=== PATIENT | female | born 1990 | race Hispanic/Latino ===

== ENCOUNTER 2017-05-28 09:31 | Emergency (ER) | payer OTHER ==
[~2017-05-28] VITALS: Ht 162.6 cm; Wt 59.4 kg
== END 2017-05-28 10:37 | disposition home or self-care (01) ==
LOC: ED 09:31
DX: T16.2XXA Foreign body in left ear, initial encounter (principal)
CPT/HCPCS: 99282

== ENCOUNTER 2018-07-12 06:11 | Inpatient (IN) | payer OTHER ==
[2018-07-12] MEDS ORDERED: VITAFOL-OB+DHA1 EACH PO (06:42)
--- NOTE | 2018-07-13 11:10 | PR ---
[facility] [address] [facility] [place] [address] Signed PP Progress Notes Datetime Report Generated by CPN: 07/13/2018 11:10 SUBJECTIVE: [id number] Pain: Within normal limits Nausea/Vomiting: Denies Vital Signs: [id number] Vital Signs: Reviewed; Within Normal Limits Notable Details: PP Hgb/Hct = 12.6/38.4 EXAM: [id number] Abdomen/Uterus: Normal Lochia: Normal Extremities: Normal IMPRESSION/PLAN/PROCEDURES: [id number] Impression: Normal progression Plan: Discharge Procedures: None Progress Notes: Doing well, without complaint, wants to go home. Signing Physician: Clarisa Garcia MD Copies: ~ *Electronically Signed* 07/13/18 1110 CLARISA GARCIA MD PATIENT NAME: JAIMIE CASTELLANOS PROGRESS NOTE DATE OF : [birth year] PHYSICIAN: CLARISA GARCIA MD RPT #: [id number] REPORT IS CONFIDENTIAL AND NOT TO BE RELEASED WITHOUT AUTHORIZATION
== END 2018-07-13 14:05 | disposition home or self-care (01) | DRG 775 ==
LOC: FBCO 06:11 → FBC 06:25
PROVIDERS: ADMIT General Practice
PROC: 10E0XZZ Delivery of Products of Conception, External Approach (ICD-10-PCS; principal; 2018-07-12)
DX: O69.81X0 Labor and delivery complicated by cord around neck, without compression, not applicable or unspecified (principal); Z3A.39 39 weeks gestation of pregnancy; Z37.0 Single live birth
CPT/HCPCS: 36415; 85027; J2590

== ENCOUNTER 2020-02-08 14:07 | Emergency (ER) | payer OTHER ==
[~2020-02-08] VITALS: Ht 162.6 cm; Wt 59.4 kg
[~2020-02-08 14:07] MED LIST: VITAFOL-OB+DHA1 EACH PO
--- OUTSIDE RECORDS SUMMARY | 2020-02-08 14:10 | XMS ---
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 ENorm VISIT COUNT (12 MO.) 1 POLLY Olson TOTAL 1 NOTE: Visits indicate total known visits. ED/UCC VISIT TRACKING (12 MO.) 02/08/2020 14:08 [facility] [place] TYPE: Emergency COMPLAINT: - EAR PAIN, FLU SYMPTOMS INPATIENT VISIT TRACKING (12 MO.) No inpatient visits to display in this time frame [email or web address]
== END 2020-02-08 14:39 | disposition home or self-care (01) ==
LOC: ED 14:07
DX: H92.09 Otalgia, unspecified ear (principal)

== ENCOUNTER 2020-09-21 14:57 | Inpatient (IN) | payer OTHER ==
--- NOTE | 2020-09-22 12:29 | PR ---
[facility] [address] [facility] [place] [address] Signed PP Progress Notes Datetime Report Generated by CPN: 09/22/2020 12:29 SUBJECTIVE: [id number] Pain: Within Normal Limits Nausea/Vomiting: Denies Vital Signs: [id number] Vital Signs: Reviewed; Within Normal Limits Notable Details: PP Hgb/Hct = 11.6/34.1 Abdomen/Uterus: Normal Lochia: Normal Extremities: Normal IMPRESSION/PLAN/PROCEDURES: [id number] Impression: Normal Progression Plan: Continue Present Management Procedures: None Progress Notes: Doing well, without complaint, had episode of dizziness, with room spinning earlier, treated with Meclizine, feeling better now Signing Physician: Clarisa Garcia MD Copies: ~ *Electronically Signed* 09/22/20 1229 CLARISA GARCIA MD PATIENT NAME: JAIMIE CASTELLANOS PROGRESS NOTE DATE OF : 90 PHYSICIAN: CLARISA GARCIA MD RPT #: [id number] REPORT IS CONFIDENTIAL AND NOT TO BE RELEASED WITHOUT AUTHORIZATION
--- NOTE | 2020-09-23 09:19 | PR ---
[facility] [address] [facility] [place] [address] Signed PP Progress Notes Datetime Report Generated by CPN: 09/23/2020 09:19 SUBJECTIVE: [id number] Pain: Within Normal Limits Nausea/Vomiting: Denies Vital Signs: [id number] Vital Signs: Reviewed; Within Normal Limits Notable Details: PP Hgb/Hct = 11.6/34.1 Abdomen/Uterus: Normal Lochia: Normal Extremities: Normal IMPRESSION/PLAN/PROCEDURES: [id number] Impression: Normal Progression Plan: Discharge Procedures: None Progress Notes: Doing well, without complaint, ready to go home. Signing Physician: Clarisa Garcia MD Copies: ~ *Electronically Signed* 09/23/20 0919 CLARISA GARCIA MD PATIENT NAME: JAIMIE CASTELLANOS PROGRESS NOTE DATE OF : 90 PHYSICIAN: CLARISA GARCIA MD RPT #: [id number] REPORT IS CONFIDENTIAL AND NOT TO BE RELEASED WITHOUT AUTHORIZATION
== END 2020-09-23 10:10 | disposition home or self-care (01) | DRG 807 ==
LOC: FBCO 14:57 → FBC 15:11 → MS 09-22 16:00 → FBC 09-22 16:34 → FBCO 10-27 14:12
PROVIDERS: ADMIT General Practice; ATTEND General Practice
PROC: 10E0XZZ Delivery of Products of Conception, External Approach (ICD-10-PCS; principal; 2020-09-21)
PROC: 10907ZC Drainage of Amniotic Fluid, Therapeutic from Products of Conception, Via Natural or Artificial Opening (ICD-10-PCS; 2020-09-21)
DX: O99.824 Streptococcus B carrier state complicating childbirth (principal); Z37.0 Single live birth; Z3A.38 38 weeks gestation of pregnancy; O62.3 Precipitate labor; O34.43 Maternal care for other abnormalities of cervix, third trimester; O99.893 Other specified diseases and conditions complicating puerperium; R42 Dizziness and giddiness
CPT/HCPCS: 36415; 85027; A9270; J2540; J2590; J7121

== ENCOUNTER 2022-08-11 11:45 | Inpatient (IN) | payer OTHER ==
[~2022-08-11] VITALS: Ht 147.3 cm; Wt 59.9 kg
--- NOTE | 2022-08-11 12:07 | NUR ---
RT COLLECTED RAPID COVID 19 SWAB AT THIS TIME WITH NO COMPLICATIONS.
--- NOTE | 2022-08-11 14:32 | PR ---
[facility] [address] [place] [address] Signed PP Progress Notes Datetime Report Generated by CPN: 08/11/2022 14:32 SUBJECTIVE: [id number] Pain: Within Normal Limits Nausea/Vomiting: Denies Vital Signs: [id number] Vital Signs: Reviewed; Within Normal Limits Abdomen/Uterus: Normal Lochia: Normal Vulva/Perineum: Normal Exam Comments: Uterus firm, below umbilicus IMPRESSION/PLAN/PROCEDURES: [id number] Other Impression: PP Hemorrhage Progress Notes: Patient doing well, but passed large clot and excess bleeding, estimated blood loss about 1000 ml since after delivery Now firm again and minimal bleeding from vagina. Cytotec Suppository. IV TXA Start IV with 40 units Pitocin in 1 L LR @ 200 ml/hr Dumont to bladder IM Methergine 0.2 mg Seems stable now. Continue close monitoring. Signing Physician: Clarisa Nova MD Copies: ~ *Electronically Signed* 08/11/22 1433 CLARISA NOVA MD PATIENT NAME: JAIMIE CASTELLANOS PROGRESS NOTE DATE OF : 90 PHYSICIAN: CLARISA NOVA MD RPT #: [id number] REPORT IS CONFIDENTIAL AND NOT TO BE RELEASED WITHOUT AUTHORIZATION
--- NOTE | 2022-08-11 16:58 | PR ---
[facility] [address] [place] [address] Signed PP Progress Notes Datetime Report Generated by CPN: 08/11/2022 16:58 SUBJECTIVE: [id number] Pain: Within Normal Limits Nausea/Vomiting: Denies Vital Signs: [id number] Vital Signs: Reviewed; Within Normal Limits Abdomen/Uterus: Normal Lochia: Normal Vulva/Perineum: Normal Exam Comments: Uterus firm, below umbilicus IMPRESSION/PLAN/PROCEDURES: [id number] Other Impression: PP Hemorrhage Plan: Continue Present Management Progress Notes: Bleeding better now. Will check Coag profile. Continue monitoring bleeding and uterine tone. May need Bakri Balloon. Signing Physician: Clarisa Garcia MD Copies: ~ *Electronically Signed* 08/11/22 1658 CLARISA GARCIA MD PATIENT NAME: JAIMIE CASTELLANOS PROGRESS NOTE DATE OF : 90 PHYSICIAN: CLARISA GARCIA MD RPT #: [id number] REPORT IS CONFIDENTIAL AND NOT TO BE RELEASED WITHOUT AUTHORIZATION
--- NOTE | 2022-08-12 08:23 | PR ---
[facility] [address] [facility] [place] [address] Signed PP Progress Notes Datetime Report Generated by CPN: 08/12/2022 08:22 SUBJECTIVE: [id number] Pain: Within Normal Limits Nausea/Vomiting: Denies Vital Signs: [id number] Vital Signs: Reviewed Notable Details: PP Hgb/Hct = 10.1/30.0 Abdomen/Uterus: Normal Lochia: Normal Vulva/Perineum: Normal Extremities: Normal Exam Comments: PT/PTT/Fibrinogen all normal IMPRESSION/PLAN/PROCEDURES: [id number] Impression: Normal Progression Other Impression: Anemia form acute PP hemorrhage Plan: Discharge Procedures: None Progress Notes: Doing well, minimal cramping, no further heavy bleeding, wants to go home. Signing Physician: Clarisa Garcia MD Copies: ~ *Electronically Signed* 08/12/22821 CLARISA GARCIA MD PATIENT NAME: JAIMIE CASTELLANOS PROGRESS NOTE DATE OF : 90 PHYSICIAN: CLARISA GARCIA MD RPT #: [id number] REPORT IS CONFIDENTIAL AND NOT TO BE RELEASED WITHOUT AUTHORIZATION
== END 2022-08-12 14:10 | disposition home or self-care (01) | DRG 806 ==
LOC: FBCO 11:45 → MS 11:58 → FBC 11:58 → FBCO 11:58 → MS 15:46 → FBC 15:46 → MS 15:46 → FBC 08-12 14:10
PROVIDERS: ADMIT General Practice; ATTEND General Practice
PROC: 10E0XZZ Delivery of Products of Conception, External Approach (ICD-10-PCS; principal; 2022-08-11)
PROC: 10907ZC Drainage of Amniotic Fluid, Therapeutic from Products of Conception, Via Natural or Artificial Opening (ICD-10-PCS; 2022-08-11)
DX: O62.3 Precipitate labor (principal); O72.1 Other immediate postpartum hemorrhage; Z37.0 Single live birth; D62 Acute posthemorrhagic anemia; Z3A.39 39 weeks gestation of pregnancy; O99.02 Anemia complicating childbirth; Z20.822 Contact with and (suspected) exposure to COVID-19
CPT/HCPCS: 36415; 85025; 85027; 85384; 85610; 85730; 86850; 86900; 86901; 87502; A9270; C9803; J2210; J2590; J7120; J7121; U0003

== ENCOUNTER 2022-09-01 13:18 | Emergency (ER) | payer OTHER ==
[~2022-09-01] VITALS: Ht 152.4 cm; Wt 59.9 kg
--- OUTSIDE RECORDS SUMMARY | 2022-09-01 13:24 | XMS ---
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 Anabelle has no Care Guidelines for this patient. Kimberly VISIT COUNT (12 MO.) 1 POLLY Olson TOTAL 1 NOTE: Visits indicate total known visits. ED/C VISIT TRACKING (12 MO.) 09/01/2022 13:19 [facility] OR TYPE: Emergency COMPLAINT: - SEIZURE INPATIENT VISIT TRACKING (12 MO.) 08/11/2022 11:[address] [facility] [place] TYPE: [facility] COMPLAINT: - LABOR DIAGNOSES: - Precipitate labor - Anemia complicating childbirth - Acute posthemorrhagic anemia - Anemia complicating childbirth - Single live - Contact with and (suspected) exposure to COVID-19 - 39 weeks gestation of - Other immediate hemorrhage - Other immediate hemorrhage - 39 weeks gestation of - Acute posthemorrhagic anemia - Single live [email or web address]
[2022-09-01] MEDS ORDERED: FEROSUL325 MG PO (13:41)
[2022-09-01] MEDS ORDERED: IBUPROFEN800 MG PO (13:42)
--- NOTE | 2022-09-04 17:15 | EKG ---
[facility] [address] [facility] [place] [address] Signed Sinus tachycardia with short HI Nonspecific ST abnormality Abnormal ECG No previous ECGs available Confirmed by Mikal Ly MD () on 09/04/2022 5:14:59 PM Electronically Signed By: MIKAL LY MD 09/04/22 1715 PATIENT NAME: JAIMIE CASTELLANOS Electrocardiogram DATE OF : 89 PHYSICIAN: MIKAL LY MD REPORT #: [id number] REPORT IS CONFIDENTIAL AND NOT TO BE RELEASED WITHOUT AUTHORIZATION
== END 2022-09-01 16:52 | disposition home or self-care (01) ==
LOC: ED 13:18
DX: O99.893 Other specified diseases and conditions complicating puerperium (principal); R56.9 Unspecified convulsions; Z79.899 Other long term (current) drug therapy
CPT/HCPCS: 36415; 70450; 80053; 81001; 84703; 85025; 93005; 93010; 96374; 99285-25; A9270; J2405; J7030